=== PATIENT | female | born 1990 | race Caucasian/White ===

== ENCOUNTER → 2022-11-29 23:24 | Outpatient (CLI) | payer BC, SELFPAY ==
[2022-11-29 18:40] LABS: Basophils # 0.1 K/mm3 (0-0.2); Basophils % 1.1 % (0.1-2.0); Eosinophils # 0.2 K/mm3 (0.0-0.4); Eosinophils % 2.4 % (0.1-12.0); Hematocrit 47.7 % (37.0-47.0); Hemoglobin 14.8 g/dL (12.2-16.2); Lymphocytes # 1.8 K/mm3 (0.7-4.5); Lymphocytes % 22.3 % (10-50); Mean Corpuscular Hemoglobin 27.9 pg (27.0-31.2); Mean Corpuscular Volume 89.9 fl (81-99); Mean Platelet Volume 8.6 fl (7.4-10.4); Monocytes # 0.4 K/mm3 (0.1-1.0); Monocytes % 4.6 % (1.7-9.3); Neutrophils # 5.7 K/mm3 (1.8-7.8); Neutrophils % 69.5 % (37.0-80.0); Platelet Count 397 K/mm3 (142-424); White Blood Count 8.2 K/mm3 (4.8-10.8)
[2022-11-29 19:04] LABS: Alanine Aminotransferase 25 U/L (12-78); Albumin Level 4.4 g/dl (3.5-5.0); Albumin/Globulin Ratio 1.5 (1.1-1.8); Alkaline Phosphatase 70 U/L (38-126); Anion Gap 13.5 mEq/L (5-15); Aspartate Amino Transferase 24 U/L (14-36); Bilirubin,Total 0.7 mg/dl (0.2-1.3); Blood Urea Nitrogen 12 mg/dl (7-17); Calcium 9.1 mg/dl (8.4-10.2); Carbon Dioxide 24 mmol/L (22.0-30.0); Chloride 106 mmol/L (98-107); Chol/HDL Ratio 6.5 (1-3.5); Cholesterol 175 mg/dl (140-200); Estimated Glomerular Filt Rate 73 ml/min (>60); GFR (African American) 88 ML/MIN (>60); Glucose 101 mg/dl (74-100); HDL Cholesterol 27 mg/dl (40-60); Potassium 4.5 mmoL/L (3.5-5.1); Sodium 139 mmol/L (136-145); Total Protein,Serum 7.4 g/dl (6.3-8.2); Triglycerides 137 mg/dl (30-150); VLDL Cholesterol 27 mg/dL (0-40)
[2022-11-29 19:15] LABS: Direct LDL Cholesterol 116.88 mg/dL (100-129)
[2022-11-29 19:24] LABS: HCG Qualitative, Serum Negative (Negative)
[2022-11-29 19:36] LABS: Thyroid Stimulating Hormone 2.56 uIU/mL (0.465-4.68)
== END ==
PROVIDERS: PCP Student in an Organized Health Care Education/Training Program; Visit Provider Student in an Organized Health Care Education/Training Program
DX: N64.52 Nipple discharge (principal); R53.83 Other fatigue; E66.9 Obesity, unspecified; Z68.32 Body mass index [BMI] 32.0-32.9, adult
CPT/HCPCS: 80053; 80061; 82306; 84146; 84443; 84703; 85025

== ENCOUNTER → 2022-12-15 09:32 | Outpatient (CLI) | payer BC, SELFPAY ==
--- NOTE | 2022-12-15 09:33 | US_ITS ---
PROCEDURE INFORMATION: Exam: US Right Breast, Complete Exam date and time: 12/15/2022 9:56 AM Age: 32 years old Clinical indication: 2 week history of left nipple pain and swelling with white/yellow discharge TECHNIQUE: Imaging protocol: Complete ultrasound of all four quadrants of the right breast and the retroareolar regions, including ultrasound of the axilla when performed. COMPARISON: No relevant prior studies available. FINDINGS: Breast: There is a 0.6 cm simple cyst along the right 10 o'clock axis 10 cm from the nipple. Along the 11 o'clock axis 9 cm from the right nipple, there is a superficial horizontal gently lobulated 0.9 x 0.9 x 0.5 cm mass with central elevated echotexture. This has sonographic features suggestive of a superficial axillary tail benign lymph node. Correlation with diagnostic mammogram is recommended. Otherwise, only normal glandular structures are present in the regions assessed No suspicious solid or cystic mass is present. No architectural distortion or shadowing is present. No axillary adenopathy is present. IMPRESSION: Along the 11 o'clock axis 9 cm from the right nipple, there is a superficial horizontal gently lobulated 0.9 x 0.9 x 0.5 cm mass with central elevated echotexture. This has sonographic features suggestive of a superficial axillary tail benign lymph node. Correlation with diagnostic mammogram is recommended. ASSESSMENT: BI-RADS 0, incomplete, needs additional imaging evaluation
--- NOTE | 2022-12-15 09:33 | US_ITS ---
PROCEDURE INFORMATION: Exam: US Left Breast, Complete Exam date and time: 12/15/2022 10:23 AM Age: 32 years old Clinical indication: 2 week history of left nipple pain and swelling with white/yellow discharge TECHNIQUE: Imaging protocol: Complete ultrasound of all four quadrants of the left breast and the retroareolar regions, including ultrasound of the axilla when performed. COMPARISON: No relevant prior studies available. FINDINGS: Breast: A couple of retroareolar ducts are mildly prominent, measuring up to about 0.2 cm. No intraluminal mass or significant debris Otherwise, only normal glandular structures are present in the regions assessed No suspicious solid or cystic mass is present. No benign-appearing solid or cystic mass is present. No architectural distortion or shadowing is present. No axillary adenopathy is present. IMPRESSION: No sonographic evidence of malignancy. Due to the patient's clinical symptoms, diagnostic mammogram including spot compression views of the retroareolar left breast is indicated ASSESSMENT: BI-RADS 0, incomplete, needs additional imaging evaluation
== END ==
PROVIDERS: PCP Student in an Organized Health Care Education/Training Program; Visit Provider Student in an Organized Health Care Education/Training Program
DX: N64.52 Nipple discharge (principal)
CPT/HCPCS: 76641

== ENCOUNTER → 2022-12-23 14:24 | Outpatient (CLI) | payer BC, SELFPAY ==
--- NOTE | 2022-12-23 14:24 | MM_ITS ---
PROCEDURE INFORMATION: Exam: MG Bilateral Diagnostic Breast Tomosynthesis Exam date and time: 12/23/2022 2:34 PM Age: 32 years old Clinical indication: Patient recalled on the basis of a screening mammogram for further evaluation; L nipple pain, yellow/white discharge TECHNIQUE: Imaging protocol: Bilateral Diagnostic tomosynthesis and 2D mammography including computer-aided detection (CAD) when performed. Unilateral or bilateral exam. COMPARISON: 1. US BREAST LT COMPLETE 12/15/2022 10:23 AM 2. US BREAST RT COMPLETE 12/15/2022 9:56 AM FINDINGS: MAMMOGRAPHY: The breasts are heterogeneously dense, which may obscure small masses. There is no stellate mass, architectural distortion or suspicious microcalcifications in either breast to suggest malignancy. No skin thickening or axillary adenopathy. IMPRESSION: No mammographic evidence of malignancy. Should spontaneous clear and/or hemorrhagic nipple discharge arise, MRI may prove useful for further evaluation.Annual bilateral mammographic screening is recommended to commence at the age of 40 unless otherwise clinically indicated. ASSESSMENT: BI-RADS Category 1: Negative
== END ==
PROVIDERS: PCP Student in an Organized Health Care Education/Training Program; Visit Provider Student in an Organized Health Care Education/Training Program
DX: N64.4 Mastodynia (principal); N64.52 Nipple discharge
CPT/HCPCS: 77062; 77066; G0279

== ENCOUNTER 2023-08-02 15:35 | Outpatient (POV) | payer BC, SELFPAY | END 2023-08-02 23:59 | disposition home or self-care (01) | LOC: SC 15:36 | PROVIDERS: Visit Provider Specialist/Technologist | DX: Z00.00 Encounter for general adult medical examination without abnormal findings (principal) ==